=== PATIENT | male | born 1985 | race Caucasian/White ===

== ENCOUNTER 2018-01-09 16:52 | Emergency (ER) | payer BC ==
[~2018-01-09] VITALS: Ht 172.7 cm; Wt 56.5 kg
[~2018-01-09 16:52] MED LIST: NOHOMEMEDS
[2018-01-09] MEDS ORDERED: KEFLEX500 MG PO (17:54)
[2018-01-09 18:45] VITALS: BP 113/78
== END 2018-01-09 18:47 | disposition home or self-care (01) ==
LOC: EME 16:52
DX: S61.214A Laceration without foreign body of right ring finger without damage to nail, initial encounter (principal); W26.8XXA Contact with other sharp object(s), not elsewhere classified, initial encounter; Z23 Encounter for immunization; Z87.891 Personal history of nicotine dependence
CPT/HCPCS: 99281; 99283; S0020